=== PATIENT | male | born 1965 | race Caucasian/White ===

== ENCOUNTER 2019-03-31 10:28 | Outpatient (CLI) | payer OTHER ==
[2019-03-31 11:34] LABS: Bilirubin,Urine NEG (Negative); Blood,Urine NEG (Negative); Color,Urine Yellow (Yellow); Mucus,Urine FEW /HPF; Protein,Urine <15 mg/dL mg/dL (Negative); WBC,Urine < 1.0 /HPF (0.0-6.0)
== END 2019-03-31 10:29 | disposition home or self-care (01) ==
LOC: LAB 10:28
PROVIDERS: ATTEND Internal Medicine
DX: N41.0 Acute prostatitis (principal); N39.0 Urinary tract infection, site not specified; R19.7 Diarrhea, unspecified
CPT/HCPCS: 81001; 85007; 87086; 87177; 87591